=== PATIENT | male | born 1980 | race Hispanic/Latino ===

== ENCOUNTER → 2016-10-19 | Outpatient (CLI) | payer SELFPAY ==
--- NOTE | 2016-10-19 09:43 | RAD ---
EXAM DESCRIPTION: Pelvis CLINICAL HISTORY: 36 years Male, PAIN IMPRESSION: The pelvic ring is intact. Right os acetabuli. Mild joint space loss of the left hip when compared to the right hip. This can be seen in setting of early left hip degenerative change. Electronically signed by: Justin Olguin MD 10/19/2016 9:42 AM CDT
== END | disposition home or self-care (01) ==
LOC: RAD 08:52
PROVIDERS: ATTEND Orthopaedic Surgery
DX: M25.561 Pain in right knee (principal); M25.551 Pain in right hip